=== PATIENT | male | born 1990 | race Caucasian/White ===

== ENCOUNTER 2021-05-16 14:10 | Emergency (ER) | payer OTHER, SELFPAY ==
[2021-05-16 14:11] VITALS: BP 143/92; PULSE 64; RESP 18; TEMP 36.6; O2SAT 99; BMI 27.1
--- NOTE | 2021-05-16 14:43 | ED.RN ---
PT. HAS MORE RIGHT SIDE FLANK PAIN. PAINFUL AFTER EATING. FEELS LIKE SPASMS. X2 WEEKS. WORSE IN THE LAST WEEK.
--- NOTE | 2021-05-16 15:15 | ED.VIS.GI ---
HPI HPI - GI History of Present Illness Chief Complaint: Abd Pain Informant: patient Abdominal Pain/Flank Pain Onset: Weeks (2) Context: Gradual Onset Timing: Intermittent and Lasts (3 hours) Quality: - (Squeezing) Location: Epigastric and RUQ Worsened by: Food Relieved by: Nothing Nausea/Vomiting/Emesis GI Symptom: Negative for Nausea and Vomiting Diarrhea/Melena/Hematochezia GI Symptom: Negative for Diarrhea, Melena and Hematochezia Associated Symptoms Associated Symptoms: Negative for Dysuria, Frequency and Hematuria Narrative Narrative: Patient presents with abdominal pain that has been intermittent over the last 2 weeks. Patient states his pain starts in the epigastric area and then moved to the right upper quadrant. Patient states it is worse after eating. Patient states it comes on approximately 1 hour after eating. Patient states it last for approximately 3 hours. Patient describes as a squeezing sensation in the right upper quadrant. Patient denies any nausea or vomiting. Patient denies any diarrhea, melena, or hematochezia. Patient denies any dysuria or hematuria. Patient states his primary care physician started him on omeprazole recently for possible GERD. [facility] Medical History (Updated 05/16/21 @ 20:[address] Mynor Ivory DO) Lumbar disc disease Allergy/AdvReac Type Severity Reaction Status Date / Time No Known Allergies Allergy Verified 05/16/21 14:13 Surgical History no surgical history no surgical history Social History (Updated 05/16/21 @ 15:[address] Mynor Ivory DO) Smoking Status: Unknown if ever smoked alcohol intake: current alcohol intake frequency: a few times a week ROS ROS ED Constitutional Constitutional ED: Denies chills or fever(s) Eyes Eyes: Denies blurry vision or change in vision ENT ENT ED: Denies rhinorrhea or sore throat Cardiovascular Cardiovascular: Reports chest pain; Denies palpitations Respiratory/Chest Respiratory/Chest: Denies cough or dyspnea Gastrointestinal Gastrointestinal: Reports abdominal pain; Denies nausea or vomiting Genitourinary Genitourinary ED: Denies dysuria or hematuria Musculoskeletal Musculoskeletal: Reports back pain; Denies neck pain Integumentary Denies abscess or rash Neurologic Neurologic: Denies headache(s) or weakness Allergic/Immunologic Allergic/Immunologic ED: Denies mouth swelling or urticaria EXAM Physical Exam Const Vital Signs: 05/16/21 14:11 05/16/21 19:14 Temperature 97.8 F Temperature Source Temporal Pulse Rate 64 Respiratory Rate 18 16 Blood Pressure 143/92 H Blood Pressure Mean 109 Pulse Ox 99 Oxygen Delivery Method Room Air Positive well nourished and well developed General Appearance ED: well developed HEENT Reports moist mucous membranes Neck supple and no JVD Resp normal respiratory effort and clear to auscultation bilaterally Cardio regular rate, regular rhythm and no murmurs GI normal to inspection, nondistended, normoactive bowel sounds, non-tender and non-distended Auscultation: normoactive bowel sounds Palpation: soft; Negative for guarding or rebound tenderness present Extremity normal to inspection General Extremety ED: Negative for edema or tenderness General Extremity: Negative for edema Neuro oriented x3, CN's II-XII intact bilaterally and no sensory deficits noted Sensorium / Orientation: alert Motor Exam: strength 5/5 throughout Psych mental status grossly normal Skin no rashes or lesions noted MDM MDM MDM Narrative Medical decision making narrative: Patient was given IV fluids, morphine, and Zofran. CBC shows a mild leukocytosis of 11.9. Basic metabolic profile was within normal limits. Urinalysis does not show any evidence of urinary tract infection. Hepatic profile was essentially within normal limits. Ultrasound of the gallbladder was obtained. There is a mixed solid/cystic appearing mass with tubular densities throughout the parenchyma in the superior medial pole region of the right kidney. This is in the region of the adrenal gland however this is not the normal appearance of the adrenal gland. CT scan is recommended. This was interpreted by the radiologist and reviewed by myself. CT scan of the abdomen pelvis was obtained. There is a mass in the right retroperitoneum that is cystic. It encompasses the right renal vein and inferior vena cava and partially encompasses the abdominal aorta. The adrenal glands are normal. There is no other acute abnormality. Patient was advised of his findings. Patient was given a referral for [facility]. Patient was also instructed to follow-up with his primary care physician in 3 to 5 days. Patient and spouse understood and were agreeable with the plan. All questions were answered. Lab Data Attestation: I reviewed the patient's lab results. Labs: Laboratory Results - last 24 hr 05/16/21 05/16/21 05/16/21 14:24 14:24 14:24 WBC 11.9 H RBC 5.42 Hgb 16.2 Hct 47.0 MCV 86.7 MCH 29.9 MCHC 34.5 RDW Std Deviation 37.1 RDW Coeff of Yris 11.7 Plt Count 268 MPV 9.0 Immature Gran % (Auto) 0.600 Neut % (Auto) 87.5 H Lymph % (Auto) 7.0 L [place] % (Auto) 4.5 Eos % (Auto) 0.2 Baso % (Auto) 0.2 Absolute Neuts (auto) 10.4 H Absolute Lymphs (auto) 0.84 Nucleated RBC % 0 Sodium 140 Potassium 3.9 Chloride 108 H Carbon Dioxide 30.0 Anion Gap 2 L BUN 17 Creatinine 1.02 Estim Creat Clear Calc 116.23 Est GFR (MDRD) Af Amer 110 Est GFR (MDRD) Non-Af 91 BUN/Creatinine Ratio 16.7 Glucose 105 Calcium 9.3 Total Bilirubin Direct Bilirubin AST ALT Alkaline Phosphatase Total Protein Albumin Globulin Urine Color Yellow Urine Clarity Sl. Cloudy Urine pH 6.0 Ur Specific [place] 1.025 Urine Protein Negative Urine Glucose (UA) Normal Urine Ketones Negative Urine Occult Blood Negative Urine Nitrite Negative Urine Bilirubin Negative Urine Urobilinogen Normal Ur Leukocyte Esterase Negative Urine RBC 0 SEEN Urine WBC 0 SEEN Ur Squamous Epith Cells 0-5 SEEN Urine Bacteria 0 SEEN Urine Mucus 2+ 05/16/21 14:24 WBC RBC Hgb Hct MCV MCH MCHC RDW Std Deviation RDW Coeff of Yris Plt Count MPV Immature Gran % (Auto) Neut % (Auto) Lymph % (Auto) [place] % (Auto) Eos % (Auto) Baso % (Auto) Absolute Neuts (auto) Absolute Lymphs (auto) Nucleated RBC % Sodium Potassium Chloride Carbon Dioxide Anion Gap BUN Creatinine Estim Creat Clear Calc Est GFR (MDRD) Af Amer Est GFR (MDRD) Non-Af BUN/Creatinine Ratio Glucose Calcium Total Bilirubin 0.50 Direct Bilirubin 0.16 AST 10 L ALT 19 Alkaline Phosphatase 64 Total Protein 7.5 Albumin 4.2 Globulin 3.3 Urine Color Urine Clarity Urine pH Ur Specific [place] Urine Protein Urine Glucose (UA) Urine Ketones Urine Occult Blood Urine Nitrite Urine Bilirubin Urine Urobilinogen Ur Leukocyte Esterase Urine RBC Urine WBC Ur Squamous Epith Cells Urine Bacteria Urine Mucus Radiography Diagnostic Testing: Clinical Impression(s) from Imaging Studies Gallbladder Ultrasound 05/16/21 16:36 IMPRESSION: 1. Mixed solid/cystic appearing mass with tubular densities throughout the parenchyma is seen at the superior/medial pole region of the right kidney measures 7.6 x 7.3 x 4.6 cm. This is in the expected region of the adrenal gland, however this is not the normal appearance. CT of the abdomen is recommended for definitive evaluation and diagnosis. Electronically Signed: Boo Schreiber MD at 18:20 EST , Abdomen/Pelvis CT 05/16/21 19:24 IMPRESSION: Cystic mass within the retroperitoneum right of midline, differential includes cystic lymphangioma, cystic mesothelioma neurogenic tumor and lymphocele. Electronically Signed: Nai Jiménez MD at 20:15 EST , Discharge Plan Triage Chief Complaint: Abd Pain ED Provider: Mynor Ivory Dx/Rx/DC Orders Clinical Impression: Retroperitoneal mass Instructions: ED Flank Pain, Uncertain Cause Other Ambulatory Orders: Fast Pass: Oncology Referral [facility] (Routine) Facility: [facility] - Location: [facility] Ordered By: Dr. Mynor Ivory Primary Care Provider: Simeon Babb Referrals: Simeon Babb DO [Primary Care Provider] - 3-5 Days Disposition Disposition: Home, Self Care
[2021-05-16 16:23] LABS: Bacteria 0 SEEN /hpf (None Seen); Red Blood Cells-Urine 0 SEEN /hpf (0-5); White Blood Cells 0 SEEN /hpf (0-5)
[2021-05-16 16:25] LABS: Absolute Lymphocyte Count 0.84 X10^3/uL (0.83-4.51); Absolute Neutrophil Count 10.4 X10^3/uL (2.0-7.7); Basophil# 0.02 X10^3/uL; Basophil% 0.2 % (0-1); Eosinophil# 0.02 X10^3/uL; Eosinophils% 0.2 % (0-5); Hemoglobin 16.2 g/dL (13.0-16.5); Lymphocyte # 0.84 X10^3/ul (0.83-4.51); Mean Corp Hgb Conc 34.5 g/dL (32-36); Mean Corpuscular Hgb 29.9 pg (27.0-32.0); Mean Corpuscular Volume 86.7 fL (80-94); Monocyte# 0.54 X10^3/uL; Monocyte% 4.5 % (0-10); NRBC Flagged by Analyzer 0 % (0-5); Neutrophil # 10.44 X10^3/uL (2.7-7.7); Neutrophil % 87.5 % (47-70); Platelet Count 268 K/mm3 (150-450); RBC Distribution Width CV 11.7 % (11.6-14.6); RBC Distribution Width SD 37.1 fl (35.1-43.9); Red Blood Count 5.42 M/mm3 (4.6-6.2); White Blood Count 11.9 K/mm3 (4.4-11.0)
[2021-05-16 16:28] LABS: Color, Urine Yellow (Yellow); Glucose, Dipstick Normal (Normal); Ketone-Dipstick Negative (Negative); Leukocyte Esterase-Dipstick Negative /ul (Negative); Nitrite-Dipstick Negative (Negative); Occult Blood-Urine Negative /ul (Negative); Protein-Dipstick Negative (Negative); Specific Gravity, Urine 1.025 (1.002-1.030); Urine Bilirubin Dipstick Negative (Negative); Urine Clarity Sl. Cloudy (Clear); Urine Urobilinogen Normal (Normal)
[2021-05-16 16:35] LABS: Anion Gap 2 (5-15); BUN 17 mg/dL (7-18); BUN/Creat Ratio 16.7 RATIO (10-20); Calcium,Total 9.3 mg/dL (8.5-10.1); Chloride 108 mmol/L (98-107); Creatinine, Serum 1.02 mg/dL (0.70-1.30); EST Glomerular Filtration Rate 91 mL/min (>60); Est Glom Filt Rate - Afr Amer 110 mL/min (>60); Estimated Creatinine Clearance 116.23 ml/min; Glucose 105 mg/dL (74-106); Potassium 3.9 mmol/L (3.5-5.1); Sodium Level 140 mmol/L (136-145)
--- NOTE | 2021-05-16 16:36 | US_ITS ---
STUDY: ABDOMINAL ULTRASOUND - RIGHT UPPER QUADRANT REASON FOR VISIT: Male, 31 years old RUQ INTERMITTENTLY X 2 WEEKS, WORSE AFTER EATING TECHNIQUE: Ultrasound evaluation of the right upper quadrant was performed with real-time and static cline-scale imaging. TECHNICAL QUALITY: Adequate. COMPARISON: None. FINDINGS: Liver: The liver measures 16.9 cm. There is normal echogenicity of the liver. The bile ducts are within normal limits. There is hepatic color flow. The direction of portal flow is hepatopetal. There is no demonstrated mass lesion. Gallbladder: Normal distended gallbladder. The gallbladder wall measures 2 mm. There is a negative sonographic Hooker''s sign. There is no pericholecystic fluid. There are no gallstones. Common Bile Duct (C.B.D.): The common bile duct measures 3 mm. Pancreas: Poorly visualized/mostly obscured by bowel gas. Right Kidney: Mixed solid/cystic appearing mass with tubular densities throughout the parenchyma is seen at the superior/medial pole region of the right kidney measures 7.6 x 7.3 x 4.6 cm. This is in the expected region of the adrenal gland, however this is not the normal appearance. CT of the abdomen is recommended for definitive evaluation and diagnosis. A small amount of perinephric fluid is present near the superior pole. Normal size of the right kidney. The right kidney measures 11.4 x 5.6 x 4.2 cm. Normal renal cortex. There is no demonstrated renal mass or cyst. There is no right hydronephrosis. US/Gallbladder IMPRESSION: 1. Mixed solid/cystic appearing mass with tubular densities throughout the parenchyma is seen at the superior/medial pole region of the right kidney measures 7.6 x 7.3 x 4.6 cm. This is in the expected region of the adrenal gland, however this is not the normal appearance. CT of the abdomen is recommended for definitive evaluation and diagnosis. Electronically Signed: Boo Schreiber MD at 18:20 EST ,
[2021-05-16 16:42] LABS: Mucous, Urine 2+ /hpf (<or=2+); Squamous Epithelial Cells - UA 0-5 SEEN /hpf (0-5)
[2021-05-16] MEDS: 0.9% Normal Saline 1,000 ML 1000 ML IV (16:43)
[2021-05-16 17:16] LABS: AST(SGOT) 10 U/L (15-37); Alanine Aminotransfer ALT/SGPT 19 U/L (16-61); Albumin, Serum 4.2 g/dL (3.2-5.0); Alkaline Phosphatase 64 U/L (45-117); Bilirubin, Direct 0.16 mg/dL (0.00-0.30); Globulin 3.3 g/dL (2.2-4.2); Protein, Total 7.5 g/dL (6.4-8.2)
[2021-05-16 19:14] VITALS: RESP 16
--- NOTE | 2021-05-16 19:24 | CT_ITS ---
STUDY: CT ABDOMEN AND PELVIS WITH CONTRAST REASON FOR EXAM: Male, 31 years old. Right flank pain RADIATION DOSAGE (If Supplied By Facility): CTDIvol = ( 13.78 ) mGy, DLP = ( 806.56 ) mGycm TECHNIQUE: Transaxial images were obtained from the dome of the diaphragm to the symphysis pubis without oral contrast. IV 100mL [id number]-300 was administered. Sagittal and coronal images were reconstructed. Individualized dose optimization techniques were used for this CT. COMPARISON: Ultrasound dated 05/16/2021 FINDINGS: The visualized lung bases are unremarkable. The visualized portions of the heart are within normal limits. Normal liver. Normal gallbladder and extrahepatic biliary system. Normal spleen. Normal pancreas. Within the right retroperitoneum there is a cystic masslike focus encompassing the right renal vein and inferior vena cava and partially encompassing the abdominal aorta. The cystic focus measures up to 8.7 x 5.8 x 10.8 cm. Normal bilateral adrenal glands. Normal right kidney. Normal left kidney. Normal visualized stomach. Normal small intestine. Normal colon. The appendix is visualized and appears normal. Normal urinary bladder. Normal abdominal wall. There is L5/S1 degenerative disease. CT/Abdomen/Pelvis W IV Cont ONLY IMPRESSION: Cystic mass within the retroperitoneum right of midline, differential includes cystic lymphangioma, cystic mesothelioma neurogenic tumor and lymphocele. Electronically Signed: Nai Jiménez MD at 20:15 EST ,
== END 2021-05-16 21:02 | disposition home or self-care (01) ==
PROVIDERS: Emergency Provider Emergency Medicine; PCP Family Medicine; Visit Provider Emergency Medicine
DX: R19.00 Intra-abdominal and pelvic swelling, mass and lump, unspecified site (principal); R11.2 Nausea with vomiting, unspecified; R10.11 Right upper quadrant pain; D72.829 Elevated white blood cell count, unspecified
CPT/HCPCS: 74177; 76705; 80048; 80076; 81001; 85025; 96361; 96374; 96375; 99284; J7030; Q9967; J2405